=== PATIENT | male | born 1970 | race Caucasian/White ===

== ENCOUNTER 2016-06-04 09:54 | Emergency (ER) | payer MEDICAID, OTHER ==
[~2016-06-04] VITALS: Ht 170.2 cm; Wt 97.0 kg
[2016-06-04 10:06] VITALS: Ht 170.2 cm; Wt 97.0 kg
[2016-06-04] MEDS ORDERED: SOD CHLORIDE 0.9% 1,000 ML IV STA (11:56)
[2016-06-04] MEDS ORDERED: ONDANSETRON 4 MG INJ IV STA ×2 (11:56→11:58)
[2016-06-04] MEDS ORDERED: CHLORDIAZEPOXIDE 25 MG CAP PO STA (11:58)
--- NOTE | 2016-06-04 12:38 | ERD ---
ER Documentation Chief Complaint Date/Time DATE: 06/04/16 TIME: 12:36 Chief Complaint pt bib family with c/o vomiting and feeling bad, hx HTN HPI This is a 45-year-old male with a history of hypertension and gastritis presenting to the emergency room brought in by son complaining of epigastric pain, vomiting, and a sense of feeling bad and shakiness that started the past 2 days. Patient states that he has been drinking alcohol every day for the past 2 weeks. Patient states that he has been drinking 2 beers every day for 2 weeks however yesterday he drank one whole entire vodka bottle. Patient admits to having nausea, vomiting and diarrhea. He denies any hematemesis, hematochezia. Denies any fevers He denies any current alcohol use today ROS All systems reviewed and are negative except as per history of present illness. Medications Home Meds Active Scripts Ondansetron (Ondansetron Odt) 4 Mg Tab.rapdis, 4 MG PO Q6H Y for NAUSEA AND/OR VOMITING, #10 TAB Prov:HARMEET MARCELO PA-C 06/04/16 Chlordiazepoxide* (Chlordiazepoxide*) 25 Mg Capsule, 50 MG PO Q8 Y for ETOH WITHDRAWAL SYMPTOMS, #9 CAP Prov:HARMEET MARCELO PA-C 06/04/16 Allergies Allergies: Coded Allergies: No Known Allergy (Unverified , 06/04/16) PMhx/Soc Hx Alcohol Use: Yes (BINGE DRINK) Hx Substance Use: No Hx Tobacco Use: No Physical Exam Vitals Vital Signs Date Time Temp Pulse Resp B/P Pulse Ox O2 Delivery O2 Flow Rate FiO2 06/04/16 10:06 98.3 99 16 160/94 97 Physical Exam GENERAL: well-developed/well-nourished, in no apparent distress, non-toxic appearing HENT: NC/AT, moist mucous membranes EYES: Conjunctiva normal NECK: Supple, no lymphadenopathy PULM: CTA bilaterally, no rales, rhonchi, or wheezing heard CV: Normal S1S2, RRR, good capillary refill GI: Soft, non-distended, tender to palpation epigastric region Normal bowel sounds, no masses or organomegaly felt on exam No gross peritonitis, no bruits Negative Rovsing, negative Osorio, negative McBurney's point, Negative CVAT BACK: No masses EXT: No clubbing, cyanosis, or edema NEURO: Alert and Orientated SKIN: Intact, normal turgor PSYCH: Normal mood and mentation Result Diagram: 06/04/16 1215 06/04/16 1200 Results 24 hrs Laboratory Tests Test 06/04/16 12:00 06/04/16 12:15 Alanine Aminotransferase (ALT/SGPT) 66IU/L Albumin 4.2g/dl Albumin/Globulin Ratio 1.44 Alkaline Phosphatase 89IU/L Anion Gap 19 Aspartate Amino Transf (AST/SGOT) 43IU/L Blood Urea Nitrogen 8mg/dl Calcium Level 9.1mg/dl Carbon Dioxide Level 26mmol/L Chloride Level 97mmol/L Creatinine 0.65mg/dl Direct Bilirubin 0.00mg/dl Globulin 2.90g/dl Glucose Level 109mg/dl Indirect Bilirubin 0.4mg/dl Lipase 102U/L Potassium Level 3.8mmol/L Sodium Level 138mmol/L Total Bilirubin 0.4mg/dl Total Protein 7.1g/dl Urine Bilirubin NEGATIVE Urine Clarity CLEAR Urine Color LT. YELLOW Urine Glucose NEGATIVE% Urine Hemoglobin NEGATIVE Urine Ketones NEGATIVE Urine Leukocyte Esterase NEGATIVE Urine Nitrite NEGATIVE Urine Specific [place] 1.010 Urine Total Protein NEGATIVE Urine Urobilinogen 0.2 E.U./dL Urine pH 7.5 Basophils # 0.010^3/ul Basophils % 0.5% Eosinophils # 0.110^3/ul Eosinophils % 1.8% Hematocrit 43.5% Hemoglobin 15.8g/dl Lymphocytes # 1.610^3/ul Lymphocytes % 29.2% Mean Corpuscular Hemoglobin 31.3pg Mean Corpuscular Hemoglobin Concent 36.3g/dl Mean Corpuscular Volume 86.1fl Mean Platelet Volume 10.1fl Monocytes # 0.510^3/ul Monocytes % 8.7% Neutrophils # 3.310^3/ul Neutrophils % 59.1% Nucleated Red Blood Cells # 0.010^3/ul Nucleated Red Blood Cells % 0.0/100WBC Platelet Count 55681^3/UL Red Blood Count 5.0510^6/ul Red Cell Distribution Width 12.9% White Blood Count 5.610^3/ul Current Medications Medications (Trade) Dose Ordered Sig/Katina Route PRN Reason Start Time Stop Time Status Last Admin Dose Admin Sodium Chloride (NS) 1,000 ml @ 1,000 mls/hr Q1H STAT IV 06/04/16 11:56 06/04/16 12:55 DC 06/04/16 12:25 Ondansetron HCl (Zofran Inj) 4 mg ONCE STAT IV 06/04/16 11:56 06/04/16 11:57 DC 06/04/16 12:25 Chlordiazepoxide (Librium) 50 mg ONCE STAT PO 06/04/16 11:58 06/04/16 12:00 DC 06/04/16 12:25 Ondansetron HCl (Zofran Inj) 4 mg ONCE STAT IV 06/04/16 11:58 06/04/16 12:00 DC Procedures/MDM This is a 45-year-old male with a history of hypertension and gastritis presenting to the emergency room brought in by son complaining of epigastric pain, vomiting, diarrhea, and a sense of feeling bad and shakiness that started the past 2 days. Patient states that he has been drinking alcohol every day for the past 2 weeks. Patient states that he has been drinking 2 beers every day for 2 weeks however yesterday he drank one whole entire vodka bottle. IV access is established. Patient was given 50 mg of oral Librium and 4 mg IV Zofran through IV. He was given 1 L fluids. Lab work was drawn. CBC did not show any evidence of leukocytosis or anemia. CMP did not show any evidence of renal, liver, or electrolyte abnormalities. Lipase was normal. UA did not show any evidence of hemoglobin or urinary tract infection. I have a low suspicion for delirium tremens, alcoholic encephalopathy, or pancreatitis. I have reassessed patient after Librium and Zofran and he significant felt better. Patient is suitable to follow-up with his primary care physician tomorrow. I have given a lengthy discussion on alcohol cessation , patient's son is at bedside and states that he was not staying with him during this past 2 weeks but now he will be staying in he will make sure that he will not drink anymore alcohol. Patient was given prescription for Librium 50 mg 3 times daily for the next 3 days. Discussed return to the ER for any worsening signs or symptoms. Patient understands and agrees with this plan. Departure Diagnosis: Primary Impression: Alcohol withdrawal Complication of substance-induced condition: uncomplicated Qualified Code: F10.230 - Alcohol withdrawal, uncomplicated Condition: Stable HARMEET MARCELO PA-C Jun 04, 2016 12:38
[2016-06-04 12:48] LABS: ALBUMIN 4.2 g/dl (3.3-4.9)
[2016-06-04 12:49] LABS: ADD UMIC NO; POTASSIUM 3.8 mmol/L (3.5-5.1); URINE BILIRUBIN (Dip) NEGATIVE (NEGATIVE); URINE BLOOD (Dip) NEGATIVE (NEGATIVE); URINE COLOR LT. YELLOW (YELLOW); URINE GLUCOSE (Dip) NEGATIVE (NEGATIVE); URINE KETONES (Dip) NEGATIVE (NEGATIVE); URINE LEUKOCYTE ESTERASE (Dip) NEGATIVE (NEGATIVE); URINE NITRITE (Dip) NEGATIVE (NEGATIVE); URINE TOTAL PROTEIN (Dip) NEGATIVE (NEGATIVE); URINE UROBILINOGEN (Dip) 0.2 E.U./dL (0.1-1.0)
[2016-06-04 12:51] LABS: ALBUMIN/GLOBULIN RATIO 1.44; BILIRUBIN,INDIRECT 0.4 mg/dl (0-1.1); BILIRUBIN,TOTAL 0.4 mg/dl (0.2-1.3); CREATININE 0.65 mg/dl (0.61-1.24); TOTAL PROTEIN 7.1 g/dl (6.1-8.1)
[2016-06-04 12:52] LABS: CALCIUM 9.1 mg/dl (8.4-10.2)
[2016-06-04 12:57] LABS: BASOPHILS % 0.5 % (0.0-2.0); EOSINOPHILS % 1.8 % (0.0-7.0); HEMATOCRIT 43.5 % (42.0-52.0); HEMOGLOBIN 15.8 g/dl (14.0-18.0); LYMPHOCYTES % 29.2 % (15.0-51.0); MEAN CORPUSCULAR HEMOGLOBIN 31.3 pg (29.0-33.0); MEAN CORPUSCULAR HGB CONC 36.3 g/dl (32.0-37.0); MEAN CORPUSCULAR VOLUME 86.1 fl (82.0-101.0); MEAN PLATELET VOLUME 10.1 fl (7.4-10.4); MONOCYTES % 8.7 % (0.0-11.0); NEUTROPHILS % 59.1 % (39.0-77.0); PLATELET COUNT 216 10^3/UL (140-440); RED BLOOD COUNT 5.05 10^6/ul (4.70-6.10); RED CELL DISTRIBUTION WIDTH 12.9 % (11.5-14.5); WHITE BLOOD COUNT 5.6 10^3/ul (4.8-10.8)
[2016-06-04 12:58] LABS: EOSINOPHILS # 0.1 10^3/ul (0.0-0.5); LYMPHOCYTES # 1.6 10^3/ul (0.8-2.9); MONOCYTE # 0.5 10^3/ul (0.3-0.9); NEUTROPHIL # 3.3 10^3/ul (1.6-7.5)
[2016-06-04] MEDS ORDERED: ONDA4TAB14 PO (13:10)
[2016-06-04] MEDS ORDERED: CHLO25CA9 PO (13:10)
[2016-06-04 14:00] VITALS: BP 164/89; PULSE 94; RESP 18; TEMP 98.3
== END 2016-06-04 14:00 | disposition home or self-care (01) ==
LOC: FTE 09:54
DX: F10.230 Alcohol dependence with withdrawal, uncomplicated (principal); I10 Essential (primary) hypertension; R11.10 Vomiting, unspecified
CPT/HCPCS: 36415; 80053; 81003; 83690; 85025; 96374; J2405; J7030; Z7502; Z7610

== ENCOUNTER 2017-09-14 23:17 | Emergency (ER) | END 2017-09-15 02:50 | disposition home or self-care (01) ==

== ENCOUNTER 2018-05-05 13:58 | Emergency (ER) | payer OTHER ==
[~2018-05-05] VITALS: Ht 175.3 cm; Wt 89.9 kg
[~2018-05-05 13:58] MED LIST: CAPT25TA3 PO; ONDA4TAB14 PO; PANT40TA3 PO
[2018-05-05 14:09] VITALS: Ht 175.3 cm; Wt 89.9 kg
[2018-05-05] MEDS ORDERED: SOD CHLORIDE 0.9% 1,000 ML IV STA (18:54)
[2018-05-05] MEDS ORDERED: LORAZEPAM 1 MG TAB PO ONE (19:00)
[2018-05-05] MEDS ORDERED: MULTI PO (20:33)
[2018-05-05] MEDS ORDERED: CHLO25CA9 PO (20:33)
[2018-05-05] MEDS ORDERED: THIA100T10 PO (20:33)
[2018-05-05 20:41] VITALS: BP 134/84; PULSE 104; RESP 16
--- NOTE | 2018-05-05 22:29 | ERD ---
ER Documentation Chief Complaint Chief Complaint WHITTEN X 2 days, L arm/leg numbness X 1 day HPI 47-year-old male with a history of alcoholism presenting with intermittent frontal headaches for the past 2 days he also gets left arm tingling and bilateral lower extremity tingling on occasion as well for the past 2 days. He states that he was not drinking alcohol for 1 month then relapsed a few days ago and has been binge drinking for about 1 week. He denies any falls or head injury. He denies any problems with vision. No nausea or vomiting. No chest pain, shortness of breath, abdominal pain, fevers or chills. He has had head aches similar to this before. Currently his headache is aching, in the frontal area, nonradiating, 6 out of 10. ROS All systems reviewed and are negative except as per history of present illness. Medications Home Meds Active Scripts Chlordiazepoxide* (Chlordiazepoxide*) 25 Mg Capsule, 25 MG PO Q8 PRN for CONTROL WITHDRAWAL SYMPTOMS, #10 CAP Prov:COLEMAN DELCID MD 05/05/18 Thiamine* (Thiamine*) 100 Mg Tablet, 100 MG PO DAILY, #30 TAB Prov:COLEMAN DELCID MD 05/05/18 Multivitamins* (Theragran*) 1 Tab Tab, 1 TAB PO DAILY, #60 TAB Prov:COLEMAN DELCID MD 05/05/18 Pantoprazole* (Protonix*) 40 Mg Tablet.dr, 40 MG PO DAILY, #20 TAB Prov:YURIY ROJAS MD 09/15/17 Reported Medications Captopril* (Captopril*) 25 Mg Tablet, 25 MG PO DAILY, #60 TAB 09/15/17 Discontinued Scripts Ondansetron (Ondansetron Odt) 4 Mg Tab.rapdis, 4 MG PO Q6H PRN for NAUSEA AND/OR VOMITING, #10 TAB Prov:YURIY ROJAS MD 09/15/17 Allergies Allergies: Coded Allergies: No Known Allergy (Unverified , 05/05/18) PMhx/Soc Hx Cardiac Disorders: Yes (HTN, HIGH CHOLESTEROL) Hx Miscellaneous Medical Probl: Yes ("DM DURING LAST ADMISSION" ) Hx Alcohol Use: Yes (BINGE DRINK) Hx Substance Use: No Hx Tobacco Use: No Sm[facility] Status[facility] Family History: No diabetes Physical Exam Vitals Vital Signs Date Temp Pulse Resp B/P (MAP) Pulse Ox O2 O2 Flow FiO2 Time Delivery Rate 05/05/18 97.3 104 16 134/84 99 Room Air 20:41 (101) 05/05/18 97.3 105 18 169/101 96 14:09 (123) Physical Exam Const: No acute distress, well-appearing, nontoxic Head: Atraumatic Eyes: Normal Conjunctiva, PERRLA, EOMI, no nystagmus ENT: Normal External Ears, Nose and Mouth. Dry mucous membranes Neck: Full range of motion. No meningismus. Resp: Clear to auscultation bilaterally Cardio: Tachycardic with regular rhythm, no murmurs. 2+ distal pulses in all 4 extremities Abd: Soft, non tender, non distended. Normal bowel sounds Skin: No petechiae or rashes Back: No midline or flank tenderness Ext: No cyanosis, or edema Neur: Awake and alert, oriented x3, cranial nerves intact, strength and sensations intact in all 4 extremities. Normal steady gait. Normal speech. Somewhat tremulous. Psych: Normal Mood and Affect Result Diagram: 05/05/18184605/05/181846 Results 24 hrs Laboratory Tests Test 05/05/18 18:47 White Blood Count 4.9 10^3/ul Red Blood Count 5.29 10^6/ul Hemoglobin 15.7 g/dl Hematocrit 45.2 % Mean Corpuscular Volume 85.4 fl Mean Corpuscular Hemoglobin 29.7 pg Mean Corpuscular Hemoglobin Concent 34.7 g/dl Red Cell Distribution Width 12.2 % Platelet Count 214 10^3/UL Mean Platelet Volume 9.8 fl Immature Granulocytes % 0.400 % Neutrophils % 58.7 % Lymphocytes % 31.2 % Monocytes % 8.1 % Eosinophils % 1.0 % Basophils % 0.6 % Nucleated Red Blood Cells % 0.0 /100WBC Immature Granulocytes # 0.020 10^3/ul Neutrophils # 2.9 10^3/ul Lymphocytes # 1.5 10^3/ul Monocytes # 0.4 10^3/ul Eosinophils # 0.1 10^3/ul Basophils # 0.0 10^3/ul Nucleated Red Blood Cells # 0.0 10^3/ul Prothrombin Time 12.9 Sec Prothrombin Time Ratio 1.0 INR International Normalized Ratio 0.96 Activated Partial Thromboplast Time 33.7 Sec Sodium Level 139 mmol/L Potassium Level 3.7 mmol/L Chloride Level 100 mmol/L Carbon Dioxide Level 27 mmol/L Anion Gap 12 Blood Urea Nitrogen 9 mg/dl Creatinine 0.53 mg/dl Est Glomerular Filtrat Rate mL/min > 60 mL/min Glucose Level 112 mg/dl Hemoglobin A1c 6.8 % Calcium Level 9.5 mg/dl Total Bilirubin 0.9 mg/dl Direct Bilirubin 0.00 mg/dl Indirect Bilirubin 0.9 mg/dl Aspartate Amino Transf (AST/SGOT) 49 IU/L Alanine Aminotransferase (ALT/SGPT) 86 IU/L Alkaline Phosphatase 91 IU/L Troponin I < 0.012 ng/ml Total Protein 8.1 g/dl Albumin 4.6 g/dl Globulin 3.50 g/dl Albumin/Globulin Ratio 1.31 Triglycerides Level 609 mg/dl Cholesterol Level 300 mg/dl LDL Cholesterol, Calculated 107 mg/dl HDL Cholesterol 71 mg/dl Cholesterol/HDL Ratio 4.2 RATIO Current Medications Medications Dose Sig/Katina Start Time Status Last (Trade) Ordered Route PRN Stop Time Admin Dose Reason Admin Sodium 1,000 ml @ Q1H STAT 05/05/18 DC 05/05/18 Chloride 1,000 mls/hr IV 18:54 05/05/18 19:02 19:53 Lorazepam 2 mg ONCE ONCE 05/05/18 DC 05/05/18 (Ativan) PO 19:00 05/05/18 19:03 19:01 Procedures/MDM EMERGENT LABS AND DIAGNOSTIC STUDIES: Lab Results above were reviewed and interpreted by me. CBC: no anemia or evidence of infection CMP: Mild transaminitis. No evidence of electrolyte abnormality, renal failure, hypoglycemia, liver failure, or biliary obstruction Troponin within normal limits, not indicative of cardiac ischemia Lipid panel: Hypertriglyceridemia, elevated total cholesterol Coags normal with no evidence of coagulopathy 12-lead EKG was interpreted by Renzo Delcid MD: Normal Sinus Rhythm Normal axis Normal intervals No acute ST or T wave changes suggestive of acute ischemia or STEMI. Radiology Results as interpreted by Radiology below were reviewed by Kathy Delcid MD: CT head shows no acute abnormalities Chest x-ray shows no acute abnormalities Initial Nursing notes reviewed. Previous Medical Records requested via the Electronic Health Record. EMERGENCY DEPARTMENT COURSE / MEDICAL DECISION MAKING: Patient is presenting with intermittent headache and intermittent paresthesias. I suspect this is secondary to alcohol withdrawal and I do not suspect stroke or intracranial hemorrhage. However given his history of binge drinking, CT head was done to evaluate for possible subdural hemorrhage. CT did not show any acute abnormalities. Patient was treated with IV fluids and Ativan IV with significant improvement of his symptoms. He states that he would like to stop drinking alcohol. I will give him a prescription for Librium as well as multivitamins and thiamine. Return precautions were discussed. Follow-up with PCP was recommended within 1 week. Patient's blood pressure was elevated (>120/80) but appears stable without evidence of hypertensive emergency or urgency. The patient was counseled about the risks of hypertension and urged to pursue outpatient monitoring and therapy within a week with their primary care physician. Departure Diagnosis: Primary Impression: Alcohol abuse Additional Impressions: Alcohol withdrawal Complication of substance-induced condition: uncomplicated Qualified Codes: F10.230 - Alcohol dependence with withdrawal, uncomplicated Intermittent headache Paresthesias Hypertriglyceridemia High cholesterol Condition: Stable Patient Instructions: Alcohol Withdrawal Referrals: [facility] () Usted se whitten hecho un examen mdico de control que le indica que no est en sadie condicin que requiera tratamiento urgente en el Departamento de Emergencia. Un estudio ms profundo y el tratamiento de noel condicin pueden esperar sin ningn riesgo hasta que usted sea atendida/o en el consultorio de noel mdico o sadie clnica. Es responsabilidad suya arreglar sadie america para el seguimiento del [place]. MANEJO DE CONDICIONES NO URGENTES EN EL FUTURO 1) Si usted tiene un mdico de atencin primaria: Usted debera llamar a noel mdico de atencin primaria antes de venir al departamento de emergencia. Despus de las horas de consultorio, noel doctor o noel asociado/a est disponible por telfono. El mdico o enfermero de abdirahman en el servicio telefnico puede asesorarle por benedict medio para atender el problema, o [place] contrario se puede programar sadie america. 2) Si usted no tiene un mdico de atencin primaria: Llame al mdico o clnica de referencia que aparece abajo meggan las horas de consultorio para hacer sadie america para que le vean. CLINICAS: [facility] [id number] [phone] [id number] [facility] [phone] [facility] [phone] [facility] [phone] [address] [facility] [phone] MD May 05, 2018 22:29
== END 2018-05-05 20:43 | disposition home or self-care (01) ==
LOC: E/R 13:58
DX: F10.239 Alcohol dependence with withdrawal, unspecified (principal); I10 Essential (primary) hypertension; E11.9 Type 2 diabetes mellitus without complications; Z86.73 Personal history of transient ischemic attack (TIA), and cerebral infarction without residual deficits
CPT/HCPCS: 36415; 70450; 71045; 80053; 80061; 83036; 84484; 85025; 85610; 85730; 93005; 99285; J7030